=== PATIENT | female | born 1960 | race American Indian/Alaskan Native ===

== ENCOUNTER 2017-04-27 09:48 | Outpatient (CLI) | payer MEDICAID ==
[2017-04-27 10:05] LABS: Hematocrit 34.9 % (30.3-42.9); Hemoglobin 11.4 gm/dl (10.1-14.3); Mean Corpuscular HGB Conc 33 % (30-34); Mean Corpuscular Hemoglobin 30 pg (28-32); Mean Corpuscular Volume 91 fl (79-97); Platelet Count 245 K/mm3 (140-440); Red Blood Count 3.82 M/mm3 (3.65-5.03); Red Cell Distribution Width 16.4 % (13.2-15.2)
[2017-04-27 10:40] LABS: INR 1.2 (0.87-1.13)
[2017-04-27 10:44] LABS: BUN/Creatinine Ratio 17; Blood Urea Nitrogen 17 mg/dL (7-17); Calcium 9.1 mg/dL (8.4-10.2); Hemolysis Index 6
[2017-04-27 10:46] LABS: Partial Thromboplastin Time 41.5 Sec. (24.2-36.6)
[2017-04-27 10:52] LABS: Total Cells Counted 100
[2017-04-27 10:53] LABS: Anisocytosis 1+; Platelet Estimate Cons
== END 2017-04-27 09:49 | disposition home or self-care (01) ==
LOC: LAB 09:48
PROVIDERS: ATTEND Radiology Vascular & Interventional Radiology
DX: I73.9 Peripheral vascular disease, unspecified (principal); Z79.01 Long term (current) use of anticoagulants
CPT/HCPCS: 36415; 80048; 85007; 85025; 85610; 85730